=== PATIENT | male | born 1945 | race Caucasian/White ===

== ENCOUNTER 2017-01-05 15:30 | Outpatient (RCR) | payer MEDICAID, MEDICARE | END 2017-01-08 | disposition home or self-care (01) | LOC: WCC 15:30 | DX: M86.671 Other chronic osteomyelitis, right ankle and foot (principal); I87.2 Venous insufficiency (chronic) (peripheral); Z86.718 Personal history of other venous thrombosis and embolism; I50.9 Heart failure, unspecified; Z88.2 Allergy status to sulfonamides; Z88.8 Allergy status to other drugs, medicaments and biological substances | CPT/HCPCS: G0463 ==